=== PATIENT | female | born 1985 | race Two or more races ===

== ENCOUNTER 2020-04-25 23:41 | Inpatient (IN) | payer SELFPAY ==
[~2020-04-25] VITALS: Ht 160 cm; Wt 92.1 kg
[~2020-04-25 23:41] MED LIST: DOCU-109 PO; IBUP-1060 PO; NITR100C62 PO; OXYC1TAB15 PO
[2020-04-25] MEDS ORDERED: ONDANSETRON PF 4 MG/2 ML VIAL. IVP PRN (23:45)
[2020-04-25] MEDS ORDERED: IV RINGERS,LACTATED 1000ML 1,000 ML IV PRN (23:45)
[2020-04-26] MEDS ORDERED: TERBUTALINE 1 MG/ML VIAL. SQ PRN (00:15)
[2020-04-26] MEDS ORDERED: OXYTOCIN 30 UNIT/500 ML PREMIX 500 ML IV PRN (00:15)
[2020-04-26] MEDS ORDERED: BUTORPHANOL 2 MG/ML VIAL. IVP PRN ×2 (00:15)
[2020-04-26 00:17] VITALS: BP 132/84
[2020-04-26 00:27] LABS: BILIRUBIN,URINE NEGATIVE (NEG); CLARITY,URINE CLEAR; COLOR,URINE YELLOW; NITRITE,URINE NEGATIVE (NEG); PH,URINE 6.5 (<5.0-8.0); PROTEIN,URINE NEGATIVE (NEG-TRACE); UROBILINOGEN,URINE 0.2 mg/dL (0.2 mg/dL)
[2020-04-26] MEDS ORDERED: LIDOCAINE 1% PF 30 ML VIAL. INJ PRN (00:30)
[2020-04-26] MEDS ORDERED: 0.9 % SODIUM CHLORIDE 10 ML DISP.SYRIN. IV PRN (00:30)
[2020-04-26] MEDS ORDERED: BETAMET ACET&NA PHOS 30 MG/5 ML VIAL. IM SCH (00:30)
[2020-04-26] MEDS ORDERED: AMPICILLIN SODIUM 2 GM in IV NORMAL SALINE 100ML 100 ML IV ONE (00:30)
[2020-04-26 00:33] LABS: BARBITURATES NEG (NEG); BENZODIAZEPINES NEG (NEG); CANNABINOIDS NEG (NEG); COCAINE NEG (NEG); METHADONE NEG (NEG); OPIATES NEG (NEG); PHENCYCLIDINE NEG (NEG)
[2020-04-26 00:40] LABS: AMPHETAMINE/METHAMPHETAMINE NEG (NEG)
[2020-04-26 00:42] LABS: BACTERIA,URINE FEW /HPF (0-FEW); WBC,URINE OCC /HPF (0-4)
[2020-04-26 01:59] LABS: BASO % 0 % (0-3); EOS # 0.1 x10^3/uL (0.0-0.7); EOS % 0 % (0-3); HEMOGLOBIN 12.7 g/dL (12.0-15.5); LYMPH # 2.7 x10^3/uL (1.0-4.8); LYMPH % 22 % (24-48); MEAN CORPUSCULAR HEMOGLOBIN 30 pg (25-35); MEAN CORPUSCULAR HGB CONC 33 g/dL (31-37); MEAN CORPUSCULAR VOLUME 89 fL (79-100); MONO # 0.9 x10^3/uL (0.0-1.1); MONO % 7 % (0-9); NEUT # 8.8 x10^3/uL (1.8-7.7); NEUT % 71 % (31-73); PLATELET COUNT 187 x10^3/uL (140-400); RED BLOOD COUNT 4.28 x10^6/uL (3.50-5.40); RED CELL DISTRIBUTION WIDTH 14.1 % (11.5-14.5); WHITE BLOOD COUNT 12.4 x10^3/uL (4.0-11.0)
--- NOTE | 2020-04-26 02:06 | PDOC ---
GENERAL General: 34yrs old lady EDC 06/05/19 admitted to hospital as Patient in Active Labor. VITAL SIGNS Vital Signs/I&O: Vital Signs Date Time Temp Pulse Resp B/P (MAP) Pulse Ox O2 Delivery O2 Flow Rate FiO2 04/26/20 00:17 98.6 94 20 132/84 (100) 98 Room Air 98.6 ALLERGIES Allergies: Allergies Coded Allergies Type Severity Reaction Last Updated Verified No Known Drug Allergies 03/22/16 No MEDS Medications: Current Medications Medications (Trade) Dose Ordered Sig/Beth Route PRN Reason Start Time Stop Time Status Last Admin Dose Admin Ringer's Solution 1,000 ml @ 125 mls/hr Q8H PRN IV hydration 04/25/20 23:45 04/26/20 00:44 Ondansetron HCl (Zofran) 8 mg PRN Q6HRS PRN IVP NAUSEA 04/25/20 23:45 04/26/20 00:49 Ampicillin Sodium 2 gm/Sodium Chloride 100 ml @ 200 mls/hr 1X ONCE IV 04/26/20 00:30 04/26/20 00:59 DC 04/26/20 00:43 Betamethasone Sodium Phosphate (Celestone Soluspan) 12 mg Q24H IM 04/26/20 00:30 04/27/20 00:31 04/26/20 00:43 LAB Lab: Laboratory Tests Test 04/26/20 00:10 Urine Collection Type Unknown Urine Color Yellow Urine Clarity Clear Urine pH 6.5 (<5.0-8.0) Urine Specific [place] 1.010 (1.000-1.030) Urine Protein Negative mg/dL (NEG-TRACE) Urine Glucose (UA) Negative mg/dL (NEG) Urine Ketones (Stick) 40 mg/dL (NEG) Urine Blood Small (NEG) Urine Nitrite Negative (NEG) Urine Bilirubin Negative (NEG) Urine Urobilinogen Dipstick 0.2 mg/dL (0.2 mg/dL) Urine Leukocyte Esterase Small (NEG) Urine RBC 11-20 /HPF (0-2) Urine WBC Occ /HPF (0-4) Urine Squamous Epithelial Cells Mod /LPF Urine Transitional Epithelial Cells Occ /LPF Urine Bacteria Few /HPF (0-FEW) Urine Mucus Slight /LPF Urine Opiates Screen Neg (NEG) Urine Methadone Screen Neg (NEG) Urine Barbiturates Neg (NEG) Urine Phencyclidine Screen Neg (NEG) Urine Amphetamine/Methamphetamine Neg (NEG) Urine Benzodiazepines Screen Neg (NEG) Urine Cocaine Screen Neg (NEG) Urine Cannabinoids Screen Neg (NEG) Urine Ethyl Alcohol Neg (NEG) ASSESSMENT & PLAN A&P Vital signs Stable. Pelvic Exam showed Cervix 1 cm dilated. Patient having Contractions and Spontaneous Rupture of Membranes associated with vaginal Bleeding. Justifications for Admission Other Justification JEMIMA MCARTHUR MD Apr 26, 2020 02:06
[2020-04-26 02:17] LABS: ALBUMIN 2.5 g/dL (3.4-5.0); ALBUMIN/GLOBULIN RATIO 0.6 (1.0-1.7); CALCIUM 9.2 mg/dL (8.5-10.1); CREATININE 0.6 mg/dL (0.6-1.0); GFR 115.9; POTASSIUM 3.9 mmol/L (3.5-5.1); TOTAL BILIRUBIN 0.2 mg/dL (0.2-1.0); TOTAL PROTEIN 6.8 g/dL (6.4-8.2)
--- NOTE | 2020-04-26 02:46 | HP ---
ADMIT DATE: 04/26/2020 CHIEF COMPLAINT AND HISTORY OF PRESENT ILLNESS: This patient is a 34-year-old female who is a 4, para 3 and came into the hospital with a history of having contractions and also leaking amniotic fluid associated with vaginal bleeding. She is a 4, para 3, EDC of 06/05/2020. This is a patient from [facility] and has had a care there and she has had a previous one and the rest 2-3 normal deliveries and at the time of admission to the hospital, cervix was dilated to 1 cm and the patient is having contractions at 2-3 minute intervals. PHYSICAL EXAMINATION: VITAL SIGNS: Being stable. HEAD, EYES, NOSE, THROAT: Within normal limits. LUNGS: Clear. HEART: Sounds regular sinus rhythm. ABDOMEN: About 36 weeks' size uterus. heart tones are 140 per minute, vertex presenting. PELVIC: Showed leaking amniotic fluid associated with vaginal bleeding and cervix 1 cm dilated. DIAGNOSES: 4, para 3, labor. PLAN: Vaginal delivery. JEMIMA MCARTHUR MD DR: MOHSEN/alexei JOB#: [id number] / [id number]
[2020-04-26 04:05] LABS: PLT ESTIMATE ADEQUATE (ADEQUATE)
--- NOTE | 2020-04-26 04:17 | LDN ---
DATE OF DELIVERY: 04/26/2020 DELIVERY NOTE This patient is a 34-year-old [place] lady who is 4, para 3, EDC 06/05/2020, who had her care at [facility]. The patient was admitted to the hospital in active labor and complaining of leaking amniotic fluid and associated vaginal bleeding. The patient is in labor. She has had the previous one for the first baby and then 2 normal deliveries. She did rapidly progress to complete dilatation, had a precipitous delivery, a live male infant weighing 5 pounds and 10 ounces, delivered at 25:40 hours on 04/26/2020 with the scores of 8, 9 and 9 without any problem. Cord was clamped and cut. Cord blood was taken. Placenta removed spontaneously. No hemorrhage noted. Visualization of perineum revealed a superficial laceration that did not require any sutures. Estimated blood loss was about 200 mL. The placenta was sent to the lab for further pathological examination. Baby is referred to road driver for further care and treatment. Mother tolerated the delivery well. No complications at this time. JEMIMA MCARTHUR MD DR: MOHSEN/alexei JOB#: [id number] / [id number]
[2020-04-26] MEDS ORDERED: AMPICILLIN SODIUM 1 GM in IV NORMAL SALINE 50ML 50 ML IV SCH (04:30)
[2020-04-26 04:50] VITALS: BP 105/58
[2020-04-26 06:00] VITALS: BP 111/66
[2020-04-26 10:10] VITALS: BP 111/64
[2020-04-26 15:55] VITALS: BP 114/62
[2020-04-26 20:00] VITALS: BP 112/81
[2020-04-27 04:56] VITALS: BP 108/80
[2020-04-27 08:10] VITALS: BP 120/74
[2020-04-27] MEDS: IBUPROFEN 400 MG TABLET. PO PRN (14:07)
[2020-04-27 16:30] VITALS: BP_SYST 113; BP_SYST 125; BP_DIAS 78; BP_DIAS 86
[2020-04-27] MEDS: ACETAMINOPHEN 325 MG TABLET. PO PRN (16:42)
[2020-04-27 20:00] VITALS: BP 98/59
[2020-04-28 00:15] VITALS: BP 112/71
[2020-04-28 05:00] VITALS: BP 116/76
[2020-04-28] MEDS: ACETAMINOPHEN 325 MG TABLET. PO PRN (05:06)
[2020-04-28] MEDS: IBUPROFEN 400 MG TABLET. PO PRN (05:06)
[2020-04-28 11:38] VITALS: BP 96/61
--- NOTE | 2020-04-28 17:51 | PDOC3 ---
OB DISCHARGE SUMMARY DATE OF ADMISSION: 04/26/20 DATE OF DISCHARGE: 04/28/20 REASON FOR ADMISSION: Onset of labor INTRAPARTUM PROCEDURES: Spontanous Vag Deliv DISCHARGE DIAGNOSIS: Term Delivered DISCHARGE INFORMATION: Activity (ad ivone), Diet (regular), Instructions (pelvic rest x 6 wks) HOSPITAL COURSE Term gestation delivered vaginally without complications. DALY ARSHAD Jr, MD Apr 28, 2020 17:51
--- NOTE | 2020-04-28 17:53 | DISCH ---
DISCHARGE INSTRUCTIONS Condition on Discharge Condition on Discharge: Stable Activity After Discharge Activity Instructions for Disc: Activity as tolerated Lifting Instructions after Dis: No heavy lifting Driving Instructions after Dis: Do not drive today Diet after Discharge Diet after Discharge: Regular Contacting the DRLudmila after DC Call your doctor for: Concerns you may have Follow-Up Follow up with: Tammy in 6 wks DALY ARSHAD Jr, MD Apr 28, 2020 17:53
[2020-04-28 18:05] VITALS: BP 112/71
--- NOTE | 2020-04-28 18:05 | NUR ---
Dr. May here to see pt earlier. Discharge and follow up instructions reviewed and given to pt. Pt denied any questions or complaints at this point. No Rx given at time of discharge. Pt is being discharged to boarder status as her baby is not being discharged yet.
--- NOTE | 2020-04-30 09:32 | PATHOLOGY ---
[facility] Accession Number: [id number] . 01 Material submitted: . placenta - PLACENTA WITH CORD . 01 Clinical history: . /VAGINAL BLEEDING, POSSIBLE PLACENTA ABRUPTION, ROM X 28HRS, EDC: 06-05-2020; GA: 34.2 WKS . 02 Diagnosis: 564 gram late placenta of an estimated 34 weeks 2 days gestation with attached membranes and umbilical cord: - Large for estimated gestational age placenta (approximate 97th percentile). - Acute chorionitis of placental membranes, focal. - Mild acute funisitis of umbilical cord, focal. - Focal disruption of maternal surface with retroplacental and focal intervillous hemorrhage, consistent with partial abruption. - Villous edema, patchy. (JPM:nela; 04/29/2020) R 04/30/2020 0837 Local . 02 Electronically signed: . Adis Beckford MD, Pathologist NPI- [id number] . 01 Gross description: . The specimen is received in formalin, labeled "Yenny Torres, placenta". Received is a stokes placenta with attached membranes and umbilical cord with a trimmed placental weight of 564 g and measuring 17.5 x 14.8 x 3.7 cm in greatest dimensions. The membranes are pink-kamara and translucent in appearance, and the site of membrane rupture is 2.8 cm from the placental margin. The surface is intact displaying a normal arborizing vasculature pattern. The trivascular umbilical cord measures 37.2 cm in length by up to 2.2 cm in diameter and inserts eccentrically, 2.3 cm from the closest placental margin. The umbilical cord is pale greenwood and slightly edematous in appearance with minimal helical twisting and a single false knot. The maternal surface is predominantly intact. However, there is an area of disruption covered with overlying blood coagulum near the peripheral edge measuring 7.5 x 4.5 cm. A slight amount of adherent blood coagulum is seen on the surface. Sectioning reveals red-brown cut surfaces with no grossly distinct nodules or lesions. The specimen is submitted representatively as follows: . A1 proximal umbilical cord and surface vessels A2 umbilical cord through false knot and membrane roll A3 mechanical service representative section of maternal surface from area of disruption with overlying blood coagulum A4 intact maternal surface. (CAA; 04/28/2020) QAC/QAC 04/29/2020 1550 Local . 02 Pathologist provided ICD-10: O43.893, Z37.0, Z3A.34 . 02 CPT . 815676 Specimen Comment: A courtesy copy of this report has been sent to [phone] Specimen Comment: Report sent to Performed at: 01 [facility] [address], [place] [id number] MD Gerald Nam MD Phone: [phone] Performed at: 02 [facility] [address], [place] [id number] MD Adis Beckford MD Phone: [phone]
== END 2020-04-28 18:10 | disposition home or self-care (01) | DRG 805 ==
LOC: 3 SO LND 23:41 → OBSVTOIN 04-26 00:16 → 3 NORTH 04-26 04:45
PROVIDERS: ADMIT Obstetrics & Gynecology; ATTEND Obstetrics & Gynecology
PROC: 10E0XZZ Delivery of Products of Conception, External Approach (ICD-10-PCS; principal; 2020-04-26)
DX: O62.3 Precipitate labor (principal); O60.14X0 Preterm labor third trimester with preterm delivery third trimester, not applicable or unspecified; Z37.0 Single live birth; O34.219 Maternal care for unspecified type scar from previous cesarean delivery; O70.9 Perineal laceration during delivery, unspecified; Z20.828 Contact with and (suspected) exposure to other viral communicable diseases; Z3A.34 34 weeks gestation of pregnancy
CPT/HCPCS: 36415; 80053; 80307; 81001; 82962; 85025; 86592; 86762; 86850; 86900; 86901; 87086; 87340; 87426; 87653; G0379; J0290; J0702; J2405; J2590; J7120; U0003; G0378